=== PATIENT | male | born 1980 | race Caucasian/White ===

== ENCOUNTER 2019-12-29 18:29 | Emergency (ER) | payer OTHER ==
[~2019-12-29] VITALS: Ht 180.3 cm; Wt 86.2 kg
[~2019-12-29 18:29] MED LIST: ALBU90OI61 INH; Crutch1 EACH MISC; FLUSAL5005 IH; HYDACE5 PO; IBUP800 PO; Naprosyn500 MG PO; Norco 5-325 Ta1 EACH PO; PENVK500 PO; RXHYDACE PO; TRAM50 PO; Ultram50 MG PO; Valium5 MG PO
[2019-12-29 19:34] LABS: BASOPHILS ABSOLUTE AUTO 0.03 K/mm3 (0.00-0.23); BASOPHILS PERCENT AUTO 0 % (0-2); EOSINOPHILS ABSOLUTE AUTO 0.07 K/mm3 (0.00-0.68); EOSINOPHILS PERCENT AUTO 1 % (0-6); Hematocrit 47.8 % (37.0-53.0); IMMATURE GRAN ABSOLUTE AUTO 0.03 K/mm3 (0.00-0.10); IMMATURE GRAN PERCENT AUTO 0 % (0-1); LYMPHOCYTES ABSOLUTE AUTO 1.78 K/mm3 (0.84-5.20); LYMPHOCYTES PERCENT AUTO 15 % (21-46); MONOCYTES ABSOLUTE AUTO 0.57 K/mm3 (0.16-1.47); MONOCYTES PERCENT AUTO 5 % (4-13); Mean Corpuscular HGB 28.5 pg (26.0-34.0); Mean Corpuscular HGB Conc 33.5 g/dL (31.5-36.5); Mean Corpuscular Volume 85 fL (80-100); Mean Platelet Volume 9.6 fL (9.1-12.4); NEUTROPHILS ABSOLUTE AUTO 9.65 K/mm3 (1.96-9.15); NEUTROPHILS PERCENT AUTO 80 % (41-73); Platelet Count 256 K/mm3 (150-400); RDW Coefficient Variation 12.6 % (11.7-14.2); RDW Standard Deviation 39.3 fL (35.1-46.3); Red Blood Cell Count 5.62 M/mm3 (4.30-5.90); White Blood Cell Count 12.13 K/mm3 (4.00-11.30)
[2019-12-29 19:57] LABS: Alanine Aminotransfer (ALT/SGP 44 U/L (12-78); Albumin, Blood 4.2 g/dL (3.4-5.0); Alk Phos 96 U/L (50-136); Anion Gap 4 mmol/L (6-16); Aspartate Aminotrans (AST/SGOT 22 U/L (12-37); Bilirubin, Total 0.5 mg/dL (0.1-1.0); Blood Urea Nitrogen 7 mg/dL (8-24); Bun/Creatinine Ratio 7.2 (12.0-20.0); CO2, Blood 30 mmol/L (21-32); Calcium, Blood 9.5 mg/dL (8.5-10.1); Chloride, Blood 104 mmol/L (98-108); Creatinine, Blood 0.97 mg/dL (0.60-1.20); Ethanol (Alcohol), Blood, Med <3 mg/dL; Globulin, Blood 4.3 g/dL (2.2-4.0); Glomerular Filtration Rate >60 (60-); Glucose, Blood 93 mg/dL (70-99); Potassium, Blood 3.6 mmol/L (3.5-5.5); Salicylate <1.7 mg/dL (2.8-20.0); Sodium, Blood 138 mmol/L (136-145); Total Protein, Blood 8.5 g/dL (6.4-8.2)
[2019-12-29 20:00] LABS: Acetaminophen, Random <2.0 ug/mL (10.0-30.0)
[2019-12-29 20:17] LABS: Source, Urine Clean Catch
[2019-12-29 20:22] LABS: Bilirubin, Urine Neg (Neg); Blood, Urine 1+ (Neg); Glucose Qualitative, Urine Neg (Neg); Ketones, Urine Neg (Neg); Leukocyte Esterase, Urine Neg (Neg); Nitrite, Urine Neg (Neg); Protein, Urine Neg (Neg); Specific Gravity, Urine 1.005 (1.003-1.022); Urobilinogen, Urine NORM (Normal)
[2019-12-29 20:30] LABS: Appearance, Urine Clear (Clear); Color, Urine Yellow (P-Yellow)
[2019-12-29 20:31] LABS: Bacteria Rare /hpf; Squamous Epithelial Cells Rare /hpf (Few); White Blood Cells, Urine 0-2 /hpf (0-5)
[2019-12-29] MEDS ORDERED: QVAR REDIHALE10.6 G3 (20:31)
[2019-12-29 20:49] LABS: U Amphetamine Screen Not Detected; U Barbituate Screen Not Detected; U Benzodiazapine Screen Not Detected; U Buprenorphine Screen Not Detected; U Cannabinoids Screen Not Detected; U Cocaine Screen Not Detected; U Methadone Screen DETECTED; U Methamphetamine Screen Not Detected; U Opiates Screen Not Detected; U Oxycodone Screen Not Detected; U Phencyclidine Screen Not Detected; U Propoxyphene Screen Not Detected
[2019-12-29] MEDS ORDERED: Catapres0.1 MG PO (21:55)
[2019-12-29] MEDS ORDERED: ONDA4ODT MM (21:55)
== END 2019-12-29 22:14 | disposition home or self-care (01) ==
LOC: ER 18:29
PROVIDERS: Physician Assistant
DX: F11.23 Opioid dependence with withdrawal (principal); R11.0 Nausea; T40.2X5A Adverse effect of other opioids, initial encounter; J45.909 Unspecified asthma, uncomplicated; F41.9 Anxiety disorder, unspecified; Z79.51 Long term (current) use of inhaled steroids; Z79.899 Other long term (current) drug therapy
CPT/HCPCS: 36415; 80053; 81001; 85025; 93005; 93010; 99284-25; A9270-GY; G0480

== ENCOUNTER 2023-08-06 06:58 | Emergency (ER) | payer OTHER ==
[~2023-08-06] VITALS: Ht 172.7 cm; Wt 99.8 kg
[~2023-08-06 06:58] MED LIST changes: +Catapres0.1 MG PO; +IPRAT-ALBUT 0.5-3 ML INH; +ONDA4ODT MM; +PRED20 PO; +QVAR REDIHALE10.6 G2 INH; +QVAR REDIHALE10.6 G3
[2023-08-06] MEDS ORDERED: Dexamethasone Sod Phos 10 MG/ML 1ML VIAL PO ONE (07:30)
[2023-08-06] MEDS ORDERED: Albuterol 2.5 MG/3 ML VIAL INH SCH (07:30)
[2023-08-06] MEDS ORDERED: QVAR REDIHALE10.6 G2 INH ×2 (07:42→09:31)
[2023-08-06] MEDS ORDERED: PRED20 PO ×2 (07:42→09:31)
[2023-08-06] MEDS ORDERED: Ventolin5 MG/1 ML INH (09:31)
[2023-08-06 09:39] VITALS: BP 132/93
== END 2023-08-06 09:40 | disposition home or self-care (01) ==
LOC: ER 06:58
DX: J45.901 Unspecified asthma with (acute) exacerbation (principal); J06.9 Acute upper respiratory infection, unspecified; Z79.52 Long term (current) use of systemic steroids; Z79.899 Other long term (current) drug therapy; Z88.2 Allergy status to sulfonamides; Z88.1 Allergy status to other antibiotic agents; Z88.8 Allergy status to other drugs, medicaments and biological substances
CPT/HCPCS: 71046; 94640; 99285-25; J1100

== ENCOUNTER 2024-01-24 20:25 | Emergency (ER) | payer OTHER ==
[~2024-01-24] VITALS: Ht 172.7 cm; Wt 102.1 kg
[~2024-01-24 20:25] MED LIST changes: +Ventolin5 MG/1 ML INH
[2024-01-24] MEDS ORDERED: Losartan Potassium 50 MG Tab PO ONE (21:10)
[2024-01-24] MEDS ORDERED: Ipratropium/Albuterol SulF 2.5-0.5MG/3 ML Amp INH ONE (21:10)
[2024-01-24] MEDS ORDERED: PredniSONE 20 MG Tab PO ONE (21:10)
[2024-01-24 22:15] VITALS: BP 151/99
[2024-01-24] MEDS ORDERED: PRED20 PO (22:22)
[2024-01-24] MEDS ORDERED: LOSA50 PO (22:22)
== END 2024-01-24 22:28 | disposition home or self-care (01) ==
LOC: ER 20:25
DX: J45.901 Unspecified asthma with (acute) exacerbation (principal); Z79.899 Other long term (current) drug therapy; Z88.2 Allergy status to sulfonamides; Z88.1 Allergy status to other antibiotic agents; Z88.8 Allergy status to other drugs, medicaments and biological substances
CPT/HCPCS: 71046; 93005; 93010; 94640; 94664; 99285-25; A9270; J7512

== ENCOUNTER 2024-01-31 09:56 | Emergency (ER) | payer OTHER ==
[~2024-01-31] VITALS: Ht 177.8 cm; Wt 99.8 kg
[~2024-01-31 09:56] MED LIST changes: +LOSA50 PO
[2024-01-31 10:17] VITALS: BP 166/117
[2024-01-31] MEDS ORDERED: IPRAT-ALBUT 0.5-3 ML INH (10:22)
[2024-01-31] MEDS ORDERED: QVAR REDIHALE10.6 G2 INH (10:22)
[2024-01-31] MEDS ORDERED: Ipratropium/Albuterol SulF 2.5-0.5MG/3 ML Amp INH ONE (10:25)
[2024-01-31] MEDS ORDERED: Prednisone20 MG PO (10:26)
[2024-01-31] MEDS ORDERED: PredniSONE 20 MG Tab PO ONE (11:10)
== END 2024-01-31 11:12 | disposition home or self-care (01) ==
LOC: ER 09:56
DX: J45.901 Unspecified asthma with (acute) exacerbation (principal); Z88.2 Allergy status to sulfonamides; Z88.1 Allergy status to other antibiotic agents; Z88.8 Allergy status to other drugs, medicaments and biological substances; Z79.52 Long term (current) use of systemic steroids; Z79.899 Other long term (current) drug therapy; Z59.89 Other problems related to housing and economic circumstances
CPT/HCPCS: 94640; 94664; 99284-25; J7512